=== PATIENT | female | born 1995 | race Two or more races ===

== ENCOUNTER 2020-11-27 12:44 | Emergency (ER) | payer OTHER ==
[~2020-11-27] VITALS: Ht 175.3 cm; Wt 61.7 kg
== END 2020-11-27 17:35 | disposition home or self-care (01) ==
LOC: ER 12:44
DX: O20.8 Other hemorrhage in early pregnancy (principal); O26.891 Other specified pregnancy related conditions, first trimester; R10.2 Pelvic and perineal pain; Z3A.01 Less than 8 weeks gestation of pregnancy

== ENCOUNTER 2020-12-06 10:01 | Emergency (ER) | payer OTHER ==
[~2020-12-06] VITALS: Ht 175.3 cm; Wt 61.2 kg
== END 2020-12-06 14:40 | disposition home or self-care (01) ==
LOC: ER 10:01
DX: O21.0 Mild hyperemesis gravidarum (principal); Z3A.09 9 weeks gestation of pregnancy

== ENCOUNTER 2021-03-29 12:51 | Inpatient (IN) | payer OTHER ==
[~2021-03-29] VITALS: Ht 175.3 cm; Wt 64.4 kg
== END 2021-04-06 11:16 | disposition home or self-care (01) | DRG 831 ==
LOC: OBS/DEL 12:51 → OB/GYN 03-30 09:12 → LDR 03-30 09:12 → OB/GYN 03-30 10:38
PROVIDERS: ADMIT Obstetrics & Gynecology; ATTEND Obstetrics & Gynecology
DX: O99.512 Diseases of the respiratory system complicating pregnancy, second trimester (principal); J15.7 Pneumonia due to Mycoplasma pneumoniae; A49.3 Mycoplasma infection, unspecified site; Z3A.26 26 weeks gestation of pregnancy; Z20.822 Contact with and (suspected) exposure to COVID-19

== ENCOUNTER 2021-05-23 12:24 | Inpatient (IN) | payer OTHER ==
[~2021-05-23] VITALS: Ht 175.3 cm; Wt 74.4 kg
[2021-05-24] MEDS ORDERED: PRENATAL + DHA1 EAC1 (08:13)
[2021-05-24] MEDS ORDERED: PRENATAL CAPLE1 EAC1 (08:15)
== END 2021-06-04 10:20 | disposition home or self-care (01) | DRG 832 ==
LOC: LDR 12:24 → OB/GYN 12:24
PROVIDERS: ADMIT Obstetrics & Gynecology; ATTEND Obstetrics & Gynecology
PROC: 4A1HXFZ Monitoring of Products of Conception, Cardiac Rhythm, External Approach (ICD-10-PCS; principal; 2021-05-23)
PROC: BY4FZZZ Ultrasonography of Third Trimester, Single Fetus (ICD-10-PCS; 2021-05-23)
DX: O47.03 False labor before 37 completed weeks of gestation, third trimester (principal); O26.873 Cervical shortening, third trimester; Z3A.33 33 weeks gestation of pregnancy; Z20.822 Contact with and (suspected) exposure to COVID-19

== ENCOUNTER 2021-06-26 05:13 | Inpatient (IN) | payer OTHER ==
[~2021-06-26] VITALS: Ht 177.8 cm; Wt 77.6 kg
[~2021-06-26 05:13] MED LIST: PRENATAL + DHA1 EAC1; PRENATAL CAPLE1 EAC1
[2021-06-26] MEDS ORDERED: VALTREX1000 MG PO (16:06)
[2021-06-28] MEDS ORDERED: VALACYCLOVIR1000 MG (08:21)
== END 2021-06-28 16:19 | disposition home or self-care (01) | DRG 807 ==
LOC: NST 05:13 → EDBD 07:08 → OB/GYN 07:08 → LDR 07:08 → OB/GYN 14:46
PROVIDERS: ADMIT Obstetrics & Gynecology; ATTEND Obstetrics & Gynecology
PROC: 10E0XZZ Delivery of Products of Conception, External Approach (ICD-10-PCS; principal; 2021-06-26)
PROC: 0HQ9XZZ Repair Perineum Skin, External Approach (ICD-10-PCS; 2021-06-26)
PROC: 4A1HXFZ Monitoring of Products of Conception, Cardiac Rhythm, External Approach (ICD-10-PCS; 2021-06-26)
PROC: 10907ZC Drainage of Amniotic Fluid, Therapeutic from Products of Conception, Via Natural or Artificial Opening (ICD-10-PCS; 2021-06-26)
PROC: 3E033VJ Introduction of Other Hormone into Peripheral Vein, Percutaneous Approach (ICD-10-PCS; 2021-06-26)
DX: O70.0 First degree perineal laceration during delivery (principal); Z37.0 Single live birth; Z3A.39 39 weeks gestation of pregnancy